=== PATIENT | male | born 1955 | race Two or more races ===

== ENCOUNTER 2023-02-26 08:08 | Outpatient (CLI) | payer BC ==
[2023-02-26] MEDS ORDERED: Iopamidol 300 61% 100 ML VIAL FS ONE (09:49)
== END 2023-02-26 08:09 | disposition home or self-care (01) ==
LOC: CSHCT 08:08
PROVIDERS: ATTEND Urology
DX: R31.0 Gross hematuria (principal); N13.30 Unspecified hydronephrosis; N13.4 Hydroureter; R33.9 Retention of urine, unspecified; N32.3 Diverticulum of bladder; N40.0 Benign prostatic hyperplasia without lower urinary tract symptoms; K44.9 Diaphragmatic hernia without obstruction or gangrene
CPT/HCPCS: 74178; 82565